=== PATIENT | female | born 1940 | race Caucasian/White ===

== ENCOUNTER 2017-10-12 21:38 | Emergency (ER) | payer MEDICARE, OTHER ==
[2017-10-12] MEDS ORDERED: Morphine 10 MG/ML VIAL ONE (22:02)
[2017-10-12] MEDS ORDERED: Ondansetron ODT 4 MG TAB ONE (22:02)
[2017-10-12] MEDS ORDERED: Aspirin 325 MG TAB ONE (22:02)
[2017-10-12 22:48] LABS: #Basophils 0.1 thou/uL (0.0-0.2); #Eosinphils 0.3 thou/uL (0.0-0.7); #Lymphocytes 1.5 thou/uL (1.20-3.40); #Monocytes 0.8 thou/uL (0.11-0.59); %Basophils 0.7 % (0.0-1.0); %Eosinophils 2.8 % (0.0-10.0); %Lymphocytes 15.7 % (21.0-51.0); %Monocytes 8.6 % (0.0-10.0); %Neutrophils 72.2 % (42.0-75.0); Hemoglobin 12.6 g/dL (12.0-16.0); Mean Corpuscular HGB CONC 33.3 g/dL (32.0-36.0); Mean Corpuscular Hemoglobin 29.7 pg (27.0-31.0); Mean Corpuscular Volume 89.3 fl (81.0-99.0); Mean Platelet Volume 6.4 fL (7.4-10.4); Platelet Count 242 thou/uL (130-400); RBC Distribution Width 13.5 % (11.5-14.5); Red Blood Cell (RBC) Count 4.25 mill/uL (4.20-5.40); White Blood Cell (WBC) Count 9.7 thou/uL (4.8-10.8)
--- NOTE | 2017-10-12 22:58 | RAD ---
PORTABLE UPRIGHT FRONTAL CHEST RADIOGRAPH: 10/12/2017 HISTORY: Chest pain. Back pain. Shoulder pain. COMPARISON: 08/31/2014 FINDINGS: Heart and mediastinal contours are stable. There is no pneumothorax, pleural fluid, lobar consolidat ion, or alveolar edema. IMPRESSION: No acute findings. POS: [facility]
[2017-10-12 23:04] LABS: Anion Gap 19 mmol/L (10-20); BUN (Urea Nitrogen) 49 mg/dL (9.8-20.1); Calc. Creatinine Clearance 0 mL/min (70-130); Calcium 9.8 mg/dL (7.8-10.44); Carbon Dioxide 30 mmol/L (23-31); Chloride 97 mmol/L (98-107); Estimated GFR-MDRD 38; Glucose 110 mg/dL (83-110); Sodium 143 mmol/L (136-145)
[2017-10-12 23:07] LABS: Potassium 2.7 mmol/L (3.5-5.1)
[2017-10-12 23:08] LABS: CKMB 0.7 ng/mL (0-6.6); Troponin I Less than 0.010 ng/mL (< 0.028)
[2017-10-12] MEDS ORDERED: Potassium Chloride 20 MEQ TAB ONE (23:14)
[2017-10-12] MEDS ORDERED: Potassium Chloride 20 MEQ/100 ML PREMIX BAG ONE (23:14)
== END 2017-10-12 23:51 | disposition short-term general hospital (02) ==
LOC: MADERS 21:38
DX: E87.6 Hypokalemia (principal); R07.2 Precordial pain; I25.2 Old myocardial infarction; I10 Essential (primary) hypertension; Z79.899 Other long term (current) drug therapy
CPT/HCPCS: 71045; 80048; 82553; 83880; 84484; 85025; 93005; 94760; 96365; 96375; J2270; J3480; Q0162